=== PATIENT | female | born 1955 | race Caucasian/White ===

== ENCOUNTER 2018-04-28 11:24 | Outpatient (CLI) | payer BC | END 2018-04-28 11:25 | disposition home or self-care (01) | LOC: BICMAMMO 11:24 | PROVIDERS: ATTEND Obstetrics & Gynecology | DX: Z12.31 Encounter for screening mammogram for malignant neoplasm of breast (principal) | CPT/HCPCS: 77063; 77067 ==

== ENCOUNTER 2018-08-23 07:38 | Outpatient (CLI) | payer BC ==
--- NOTE | 2018-08-23 10:20 | MRI ---
MRI THORACIC SPINE NONCONTRAST: DATE: 08/23/18. HISTORY: A 62-year-old female with mid back pain. FINDINGS: Vertebral body heights are maintained. There are multiple hemangiomas of bone at numerous levels. T here are Modic type I changes at 2 adjacent levels in the midthoracic spine. There is no other bone marrow edema. No high-grade central spinal canal stenosis or high-grade neural foraminal stenosis at any level. Thoracic spinal cord is normal in size and signal. No syrinx. No major pathology of pe rivertebral spaces. There is mild lateral curvature of the thoracic spine. IMPRESSION: 1. Mild discogenic degenerative changes at 2 levels in the mid thoracic spine. 2. Mild lateral curvature. 3. Otherwise, negative. POS: [facility]
--- NOTE | 2018-08-23 10:40 | MRI ---
MRI OF THE LUMBAR SPINE WITHOUT CONTRAST: INDICATION: Low back pain with extension down the left leg. COMPARISON: Prior MRI of the lumbar spine dated 08/19/17. FINDINGS: There are small hemangioma within L4, L3, and T12 that are stable. The conus is seen to terminate at approximately L1. The visualized retroperitoneum and paravertebral soft tissues appear within normal limits. There is stable susceptibility artifact within the subcutaneous tissues overlying the posterior right ileum. At L5-S1, there is a broad-based disk-osteophyte complex and facet hypertrophy. There is no apprecia ble central canal or neural foraminal narrowing. At L4-5, there is a mild broad-based bulge with facet hypertrophy. This is stable to the prior exam. No appreciable central canal or neural foraminal narrowing is evident. At L3-4, there is moderate loss of normal disk space height. There is mild facet joint degenerative change and a broad-based bulge. The broad-based bulge does encroach upon the inferior aspect of the neural foramina but without definite nerve root impingement. This is table to the prior exam. At L2-3, there is no appreciable central canal or neural foraminal narrowing. At L1-L2, there is no appreciable central canal or neural foraminal narrowing. At T12-L1, there is no appreciable central canal or neural foraminal narrowing. IMPRESSION: Mild spondylosis of the lumbar spine is stable to the prior examination dated 08/19/17. No appreciabl e significant neural foraminal or central canal narrowing is present. POS: [facility]
--- NOTE | 2018-08-23 10:50 | MRI ---
CERVICAL SPINE MRI WITHOUT CONTRAST: Date: 08/23/18 HISTORY: Low back pain, extending down the left leg. Previous L4 surgery. COMPARISON: 11/07/09. TECHNIQUE: Cervical spine MRI is performed without intravenous Gadolinium administration. Multisequential, multi planar imaging is performed. FINDINGS: Straightening of normal cervical lordosis, presumed to be due to patient positioning or muscle spasm. No MR evidence of ligamentous injury. No STIR hyperintensity to suggest vertebral body edema. Visualized brain parenchyma, cervicomedullary junction, cervical cord, and the upper thoracic cord carlton ve a normal size and signal intensity. There is 1.7 mm of retrolisthesis of C4 upon C5 and 1.3 mm of retrolisthesis of C5 upon C6. C2-C3: Left paracentral disc osteophyte complex without significant central canal stenosis. Foramina are pat ent. C3-C4: Broad based disc osteophyte complex minimally flattening the ventral thecal sac. Ventral CSF signal i ntensity is maintained. No significant central canal stenosis. Neural foramina are patent bilaterally . Minimal degenerative changes of the left uncovertebral joint. C4-C5: Broad based disc osteophyte complex abuts the thecal sac. Ventral CSF signal intensity is maintained. No significant central canal stenosis. Neural foramina are patent bilaterally. C5-C6: No significant disc osteophyte complex. No significant central canal stenosis. Moderate bilateral for aminal narrowing. C6-C7: No significant disc osteophyte complex. No significant central canal stenosis. Mild right foraminal n arrowing. Left neural foramen is patent. C7-T1: No significant central canal stenosis. Neural foramina are patent. IMPRESSION: Degenerative disc disease of the cervical spine without significant central canal stenosis. Throughou t the cervical spine, neural foramina are overall patent. There is no high grade neural foraminal shirley rowing. POS: [facility]
== END 2018-08-23 07:39 | disposition home or self-care (01) ==
LOC: TBSIIMAG 07:38
PROVIDERS: ATTEND Psychiatry & Neurology Neurology
DX: M47.896 Other spondylosis, lumbar region (principal); M47.892 Other spondylosis, cervical region; M50.30 Other cervical disc degeneration, unspecified cervical region; M51.34 Other intervertebral disc degeneration, thoracic region; M43.8X4 Other specified deforming dorsopathies, thoracic region
CPT/HCPCS: 72141; 72146; 72148

== ENCOUNTER 2019-05-04 10:50 | Outpatient (CLI) | payer BC ==
--- NOTE | 2019-05-04 11:48 | MMO ---
Bilateral MAMMO Bilat Screen [facility]. CLINICAL HISTORY: Patient is 63 years old and is seen for screening. The patient has no family history of breast cancer. The patient has no personal history of cancer. VIEWS: The views performed were: bilateral craniocaudal with tomosynthesis and bilateral mediolateral oblique with tomosynthesis. FILMS COMPARED: The present examination has been compared to prior imaging studies performed at [facility] on 04/18/2015, 04/23/2016, 04/27/2017 and 04/28/2018. MAMMOGRAM FINDINGS: The breasts are heterogeneously dense, which could obscure a lesion on mammography. There are no suspicious masses, suspicious calcifications, or new areas of architectural distortion. IMPRESSION: THERE IS NO MAMMOGRAPHIC EVIDENCE OF MALIGNANCY. A ROUTINE FOLLOW-UP MAMMOGRAM IN 1 YEAR IS RECOMMENDED. THE RESULTS OF THIS EXAM WERE SENT TO THE PATIENT. ACR BI-RADS Category 1 - Negative MAMMOGRAPHY NOTE: 1. A negative mammogram report should not delay a biopsy if a dominant of clinically suspicious mass is present. 2. Approximately 10% to 15% of breast cancers are not detected by mammography. 3. Adenosis and dense breasts may obscure an underlying neoplasm.
== END 2019-05-04 10:51 | disposition home or self-care (01) ==
LOC: BICMAMMO 10:50
PROVIDERS: ATTEND Obstetrics & Gynecology
DX: Z12.31 Encounter for screening mammogram for malignant neoplasm of breast (principal)
CPT/HCPCS: 77063; 77067

== ENCOUNTER 2019-09-21 08:37 | Outpatient (CLI) | payer BC ==
--- NOTE | 2019-09-21 10:30 | MRI ---
MRI LUMBAR SPINE WITH AND WITHOUT CONTRAST: COMPARISON: 08/23/2018 HISTORY: Lumbar radiculopathy. Low back pain extending down the left leg. Previous back surgery. TECHNIQUE: Lumbar spine MRI is performed with and without intravenous Gadolinium administration. Multisequential , multiplanar imaging was performed FINDINGS: Appropriate T1 marrow signal intensity of the lumbar vertebrae. Lumbar spine vertebral body height is maintained. No fracture. No significant STIR hyperintensity to suggest vertebral body edema or ligamentous injury. There is a Schmorl's node along the superior endplate of L4. Intrinsic T1 and T2 hyperintensities at T11, T12, L3 and L4 likely represent multifocal osseous hemangiomas. Post contrast images do not demonstrate any abnormal enhancement of the vertebral bodies. No abnormal enhancement within the thecal sac including the cauda equina and conus medullary. Appropriate signal intensity in the visualized paraspinal muscles. Appropriate signal intensity in th e visualized solid organs. The conus medullaris terminates at the superior endplate of L1. T12-L1: Adequate disc hydration. No significant central canal stenosis or significant neural foramina l narrowing. L1-L2: Adequate disc hydration. No significant central canal stenosis or significant neural foraminal narrowing. L2-L3: Adequate disc hydration. No significant posterior disc abnormality. Minimal ligament flavum th ickening and facet hypertrophy. No significant central canal stenosis. Bilaterally, neural foramina are patent. L3-L4: Desiccation with mild loss of disc space height. No significant posterior disc abnormality. Mi ld ligament flavum thickening and facet hypertrophy. No significant central canal stenosis. Mild right and left neural foraminal narrowing. L4-L5: Adequate disc hydration. No significant posterior disc abnormality. Left hemilaminotomy defect is suspected. Minimal enhancing scar tissue. Minimal facet hypertrophy. Bilaterally neural foramina are patent. L5-S1: Severe loss of disc space height. No significant posterior disc abnormality. There does appear to be scar tissue along the posterior margin of the L5-S1 disc, at the level of the left subarticular zone. Scar tissue abuts but does not obscure the traversing left S1 nerve root. The righ t subarticular zone is unremarkable. No significant stenosis of the thecal sac. Right neural foramen is patent. Mild left neural foraminal narrowing. IMPRESSION: 1. Post surgical change at L4-L5 and L5-S1. 2. No significant central canal stenosis or significant neural foraminal narrowing. Transcribed Date/Time: 09/21/2019 11:03 AM
--- NOTE | 2019-09-21 10:32 | RAD ---
CHEST TWO VIEWS: HISTORY: Physical examination for adult wellness examination. COMPARISON: None. FINDINGS: The lungs appear clear of infiltrate. Nodular density in the medial left apical region appears calcif ied. Small metallic clip overlies the right apex. Mild aortic calcification. The osseous structures a re unremarkable. IMPRESSION: No evidence of acute abnormality. POS: OFF
== END 2019-09-21 08:38 | disposition home or self-care (01) ==
LOC: TBSIIMAG 08:37
PROVIDERS: ATTEND Anesthesiology Pain Medicine
DX: Z00.00 Encounter for general adult medical examination without abnormal findings (principal); M54.16 Radiculopathy, lumbar region; Z98.890 Other specified postprocedural states
CPT/HCPCS: 71046; 72158; 82565

== ENCOUNTER 2019-10-12 12:45 | Outpatient (CLI) | payer BC ==
[~2019-10-12 12:45] MED LIST: Iopamidol-370 76% 500 ML 1 ML ONE
--- NOTE | 2019-10-12 14:42 | CT ---
CT CHEST WITH IV CONTRAST: HISTORY: A 63-year-old female with chest pain under her left breast. Left upper quadrant pain. FINDINGS: No evidence of mediastinal, hilar or axillary mass or lymphadenopathy seen. There are vascular calcif ications without evidence of aneurysmal dilatation of the thoracic aorta. There are calcified lymph n odes in the mediastinum and hilar regions. No pleural or pericardial effusions are seen. There is a c alcified granuloma in the left upper lobe. There are mild degenerative changes in the spine. No suspi cious rib lesions are seen. Upper abdominal tomograms demonstrate changes of fatty infiltration of th e liver. IMPRESSION: 1. No significant abnormalities are seen. 2. Fatty liver. 3. Further evaluation with bone scan would be helpful. POS: OFF
== END 2019-10-12 12:46 | disposition home or self-care (01) ==
LOC: BICCT 12:45
PROVIDERS: ATTEND Internal Medicine
DX: R10.12 Left upper quadrant pain (principal); K76.0 Fatty (change of) liver, not elsewhere classified
CPT/HCPCS: 71260; Q9967

== ENCOUNTER 2020-05-09 10:04 | Outpatient (CLI) | payer OTHER ==
--- NOTE | 2020-05-09 11:46 | MMO ---
Bilateral MAMMO Bilat Screen [facility]. CLINICAL HISTORY: Patient is 64 years old and is seen for screening. The patient has no family history of breast cancer. The patient has no personal history of cancer. VIEWS: The views performed were: bilateral craniocaudal with tomosynthesis and bilateral mediolateral oblique with tomosynthesis. FILMS COMPARED: The present examination has been compared to prior imaging studies performed at [facility] on 04/23/2016, 04/27/2017, 04/28/2018 and 05/04/2019. This study has been interpreted with the assistance of computer-aided detection. MAMMOGRAM FINDINGS: The breasts are heterogeneously dense, which could obscure a lesion on mammography. There are no suspicious masses, suspicious calcifications, or new areas of architectural distortion. IMPRESSION: THERE IS NO MAMMOGRAPHIC EVIDENCE OF MALIGNANCY. A ROUTINE FOLLOW-UP MAMMOGRAM IN 1 YEAR IS RECOMMENDED. THE RESULTS OF THIS EXAM WERE SENT TO THE PATIENT. ACR BI-RADS Category 1 - Negative MAMMOGRAPHY NOTE: 1. A negative mammogram report should not delay a biopsy if a dominant of clinically suspicious mass is present. 2. Approximately 10% to 15% of breast cancers are not detected by mammography. 3. Adenosis and dense breasts may obscure an underlying neoplasm. Reported by: RAOUL COSTELLO MD Electonically Signed: [id number]
== END 2020-05-09 10:05 | disposition home or self-care (01) ==
LOC: BICMAMMO 10:04
PROVIDERS: ATTEND Obstetrics & Gynecology
DX: Z12.31 Encounter for screening mammogram for malignant neoplasm of breast (principal)
CPT/HCPCS: 77063; 77067

== ENCOUNTER 2020-12-29 12:31 | Outpatient (CLI) | payer OTHER ==
--- NOTE | 2020-12-29 13:00 | SJPRAD ---
ABDOMEN ONE VIEW INDICATION: Abdominal pain COMPARISON: None FINDINGS: Bowel gas: Nonspecific but without overt appearance of obstruction. Lung bases: Clear. Additional findings: There are numerous phleboliths within the lower pelvis. Osseous structures: There is scattered degenerative and osteoarthritic change present. IMPRESSION: 1. No acute abnormality.
[2020-12-29 23:50] LABS: SARS-CoV-2 PCR by NAA Not Detected (NotDetected)
== END 2020-12-29 12:32 | disposition home or self-care (01) ==
LOC: SCSRAD 12:31
PROVIDERS: ATTEND Nurse Practitioner Family
DX: R10.9 Unspecified abdominal pain (principal); Z20.822 Contact with and (suspected) exposure to COVID-19
CPT/HCPCS: 87635; U0003; U0005

== ENCOUNTER 2021-05-13 09:44 | Outpatient (CLI) | payer OTHER | END 2021-05-13 09:45 | disposition home or self-care (01) | LOC: BICMAMMO 09:44 | PROVIDERS: ATTEND Obstetrics & Gynecology | DX: Z12.31 Encounter for screening mammogram for malignant neoplasm of breast (principal) | CPT/HCPCS: 77063; 77067 ==

== ENCOUNTER 2021-05-29 11:23 | Outpatient (CLI) | payer OTHER | END 2021-05-29 11:24 | disposition home or self-care (01) | LOC: BICRAD 11:23 | PROVIDERS: ATTEND Nurse Practitioner Family | DX: M25.512 Pain in left shoulder (principal); M25.511 Pain in right shoulder ==

== ENCOUNTER 2022-05-14 10:14 | Outpatient (CLI) | payer OTHER | END 2022-05-14 10:15 | disposition home or self-care (01) | LOC: BICMAMMO 10:14 | PROVIDERS: ATTEND Obstetrics & Gynecology | DX: Z12.31 Encounter for screening mammogram for malignant neoplasm of breast (principal) | CPT/HCPCS: 77063; 77067 ==